=== PATIENT | female | born 1980 | race Caucasian/White ===

== ENCOUNTER → 2016-12-23 | Outpatient (CLI) | payer BC ==
[~2016-12-23] MED LIST: ACET1TAB43 PO; CIPR500T4 PO; CIPR500T78 PO; CYCL10TA45 PO; CYCL10TA9 PO; DICY20TA57 PO; DIPH25CA79 PO; IBP600T1 PO; IBUP-1773 PO; MELO-195 PO; METH4TAB PO; METR500T PO; METR500T21 PO; NAPR550T2 PO; ONDA8TAB13 PO; OXYC-197 PO; OXYC-272 PO; OXYC1TAB17 PO; OXYC1TAB87 PO; PANT40TA2 PO; POLY119P PO; PREN1TAB39 PO; PROP10TA8 PO; TRAM50TA2 PO
--- OUTSIDE RECORDS SUMMARY | 2016-12-23 16:45 | XMS REPORT | Continuity of Care Document ---
Author Author [facility] Organization [facility] Address Unknown Phone Unavailable Care Team Providers Care Fishing Manager Name Role Phone Karlos Ehsan PCP [phone] Source Comments Some departments are not documenting in the electronic medical record. If you do not see the information that you expected, contact Release of Information in the Health Information Management department at [phone] for further assistance in locating additional records.[facility] Active Allergies and Adverse Reactions Allergen Noted Date Severity Reactions Comments Latex 08/30/2016 Medium HIVES Current Medications Prescription Sig. Disp. Refills Start End Date Status Date METRONIDAZOLE (FLAGYL PO) Take by mouth. Active CIPROFLOXACIN HCL (CIPRO Take by mouth. Active PO) OXYCODONE HCL (OXYCODONE Take by mouth. Active PO) OMEPRAZOLE PO Take by mouth. Active SUCRALFATE PO Take by mouth. Active CYCLOBENZAPRINE HCL Take by mouth. Active (FLEXERIL PO) TRAMADOL HCL (TRAMADOL Take by mouth. Active PO) NAPROXEN PO Take by mouth. Active dicyclomine (BENTYL) 20 Take 1 Tab by mouth every 30 Tab 0 12/30/19 Active mg tablet 6 hours. 16 Active Problems Not on file Most Recent Encounters Date Type Specialty Providers Description 11/24/2016 Hospital Radiology Jairo Vega MD Encounter 11/24/2016 Ancillary General Surgery Jairo Vega MD Abdominal pain, Orders unspecified location (Primary Dx) 11/24/2016 Screening Form 11/01/2016 Screening Form 09/30/2016 Telephone Oncology Jairo Vega MD Appointment Social History Tobacco Use Types Packs/Day Years Used Date Never Smoker Alcohol Use Drinks/Week oz/Week Comments Yes Last Filed Vital Signs Vital Sign Reading Time Taken Blood Pressure 116/75 08/30/2016 12:34 PM CDT Pulse 73 08/30/2016 12:34 PM CDT Temperature 36.7 C (98.1 F) 08/30/2016 12:34 PM CDT Respiratory Rate 17 08/30/2016 12:34 PM CDT Height 1.727 m (5' 8") 11/24/2016 2:53 PM LEADERSHIP PROGRAM INTERN Weight 69.854 kg (154 lb) 11/24/2016 2:53 PM LEADERSHIP PROGRAM INTERN Body Mass Index 23.42 11/24/2016 2:53 PM LEADERSHIP PROGRAM INTERN Oxygen Saturation 100% 08/30/2016 12:34 PM CDT Plan of Care Health Maintenance Due Date Last Done Comments Physical (Comprehensive) 1988 Exam Pertussis Vaccine 1992 Tetanus Vaccine 1998 Cervical Cancer Screening 2002 Influenza Vaccine 07/18/2016 Results from Last 3 Months MRI PELVIS WO CONTRAST (11/24/2016 4:13 PM) Impressions 1.Complex right adnexal cystic mass with prior hysterectomy. This finding is nonspecific but could represent a hemorrhagic ovarian cyst or endometrioma. Further evaluation with ultrasound is recommended. 2.No inguinal abnormality identified. 3.Myotendinous structures are unremarkable. Approved by Ryan Flores M.D. on 2016 7:15 PM By my electronic signature, I attest that I have personally reviewed the images for this examination and formulated the interpretations and opinions expressed in this report Finalized by Sincere Glass M.D. on 11/26/2016 1:04 PM. Dictated by Ryan Flores M.D. on 2016 7:07 PM. Narrative MRI of the pelvis. History:Evaluate for hernia or nerve entrapment. Comparison: [place]am[facility]/pelvic CT from December 30, 2015. Technique: Multiplanar, multisequence MR imaging of the pelvis was performed without the use of intravenous contrast. Findings: No fracture, avascular necrosis, or suspicious focal marrow replacing osseous lesion. The myotendinous structures are unremarkable. The visualized portions of the sciatic nerves are unremarkable without evidence of mass effect. No inguinal hernias. No lymphadenopathy. Hysterectomy. Complex right adnexal cystic mass measuring approximately 5.8 cm x 5.8 cm. Procedure Note Interface, Radiant Results - Tue Nov 26, 2016 1:07 PM LEADERSHIP PROGRAM INTERN MRI of the pelvis. History: Evaluate for hernia or nerve entrapment. Comparison: [place]am[facility]/pelvic CT from December 30, 2015. Technique: Multiplanar, multisequence MR imaging of the pelvis was performed without the use of intravenous contrast. Findings: No fracture, avascular necrosis, or suspicious focal marrow replacing osseous lesion. The myotendinous structures are unremarkable. The visualized portions of the sciatic nerves are unremarkable without evidence of mass effect. No inguinal hernias. No lymphadenopathy. Hysterectomy. Complex right adnexal cystic mass measuring approximately 5.8 cm x 5.8 cm. IMPRESSION 1. Complex right adnexal cystic mass with prior hysterectomy. This finding is nonspecific but could represent a hemorrhagic ovarian cyst or endometrioma. Further evaluation with ultrasound is recommended. 2. No inguinal abnormality identified. 3. Myotendinous structures are unremarkable. Approved by Ryan Flores M.D. on 2016 7:15 PM By my electronic signature, I attest that I have personally reviewed the images for this examination and formulated the interpretations and opinions expressed in this report Finalized by Sincere Glass M.D. on 11/26/2016 1:04 PM. Dictated by Ryan Flores M.D. on 2016 7:07 PM.
--- NOTE | 2016-12-23 17:25 | Diagnostic Imaging Report ---
INDICATION: Adnexal cyst. COMPARISON STUDY: CT scan from October 02, 2015. FINDINGS: Transabdominal and transvaginal imaging of the pelvis demonstrates a 2.4 x 2.3 x 2 cm simple cyst in the right ovary. No free fluid is present. A couple of smaller cysts are present in the right ovary. The right ovary measures 3.3 x 2.5 cm. The uterus and left ovary are absent. IMPRESSION: There are several simple cysts of the right ovary the largest one measuring 2.4 x 2.3 x 2 cm. Dictated by: Dictated on workstation # [id number]
== END ==
LOC: RAD 16:42
PROVIDERS: ATTEND Obstetrics & Gynecology
DX: N83.201 Unspecified ovarian cyst, right side (principal)
CPT/HCPCS: 76830; 76856

== ENCOUNTER 2017-01-10 09:00 | Outpatient (CLI) | payer BC ==
--- OUTSIDE RECORDS SUMMARY | 2017-01-09 06:30 | XMS REPORT | Continuity of Care Document ---
Author Author [facility] Organization [facility] Address Unknown Phone Unavailable Care Team Providers Care Hog Operator Name Role Phone TOMMY AHUMADA MD PCP Insurance Providers Payer Name Policy Number Subscriber Name Relationship [facility] [id number] Kirk Loyd M 01 Advance Directives Directive Response Recorded Date/Time Advance Directives No 08/08/14 1:50pm Health Care Power of Equal Employment Opportunity Officer No 08/08/14 1:50pm Organ Donor No 08/08/14 1:50pm Resuscitation Status Full Code 08/08/14 1:50pm Problems Medical Problems Problem Onset Date Status Appendicitis Unknown Active Pelvic congestion Unknown Active Medications Medication Dose Route Sig Days/Qty Instructions Order Date Discontinued Date Status Vits W-Ca,Fe,Fa(<1MG) 1 Each PO Take for as long 01/25/12 06/03/14 Discontinued Ibuprofen 600 Mg PO EVERY 6 HOURS 01/27/12 06/03/14 Discontinued Codeine Phos/Acetaminophen 1 Tab PO EVERY 4HRS PRN As needed for pain 01/27/12 Active Tramadol Hcl 50 Mg PO EVERY 4HRS 02/13/14 08/08/14 Discontinued Cyclobenzaprine HCl (Flexeril) 1 Each PO 02/13/14 06/03/14 Discontinued Cyclobenzaprine Hcl 10 Mg PO EVERY 8HRS 02/13/14 Active Methylprednisolone 0 PO DIRECTED 1 Qty 02/13/14 06/03/14 Discontinued Tramadol Hcl 50 Mg PO EVERY 6 HOURS PRN PAIN 100 Qty 06/03/14 Discontinued Oxycodone Hcl/Acetaminophen 1 Tab PO EVERY 6 HOURS PRN p 20 Qty Active Naproxen Sodium 550 Mg PO TWICE A DAY 60 Qty 06/03/14 Active Oxycodone/Acetaminophen 1-2 Tab PO EVERY 4HRS PRN PAIN 35 Qty 06/03/14 08/08/14 Discontinued Meloxicam (Mobic) 15 Mg PO DAILY 08/08/14 Active Oxycodone Hcl/Acetaminophen 1 Tab PO EVERY 6 HOURS PRN PAIN 10 Qty Active Social History Social History Problem Response Recorded Date/Time Alcohol Use Occasionally Uses 08/08/2014 1:50pm Recreational Drug Use THC (pulled in from recall) 08/08/2014 1:50pm Smoking Status Former Smoker 08/08/2014 1:50pm Query Response Start Date Stop Date Smoking Status Former Smoker Hospital Discharge Instructions No hospital discharge instructions. Plan of Care No plan of care. Functional Status No functional status results. Allergies, Adverse Reactions, Alerts Allergen Type Severity Reaction Status Last Updated hydrocodone ([id number]) Adverse Reaction Unknown TOOK ON EMPTY STOMACH= NAUSEA Active 09/21/06 tramadol Adverse Reaction Mild Stomach upset Active 08/08/14 LATEX Allergy Unknown Active 09/21/06 Immunizations Name Given Type Date of Influenza Vaccine 07/28/13 Historical Vital Signs Acute Vital Signs Vital Response Date/Time Temperature (Fahrenheit) 98.7 degrees F (97.6 - 99.5) Temperature (Calculated Celsius) 37.08073 degrees C (36.4 - 37.5) Temperature Source Temporal Pulse Rate (adult) 83 bpm (60 - 90) Respiratory Rate 16 bpm (12 - 24) O2 Sat by Pulse Oximetry 99 % (88 - 100) Blood Pressure 137/96 mm Hg Pain Pain Intensity 2 Height (Feet) 5 feet Height (Inches) 8 inches Height (Calculated Centimeters) 172.644917 cm Weight (Pounds) 140 pounds Weight (Calculated Kilograms) 63.178480 kilograms Calculated BMI 21.28 Results Test Source Date Result Interp. Ref. Range Comments Alanine Aminotransferase (ALT/SGPT) June 03, 2014 2:05pm 64 U/L N 30-65 Albumin June 03, 2014 2:05pm 4.0 G/DL N 3.4-5.0 Alkaline Phosphatase June 03, 2014 2:05pm 83 U/L N 50-136 Aspartate Amino Transf (AST/SGOT) June 03, 2014 2:05pm 24 U/L N 15-37 BUN/Creatinine Ratio June 03, 2014 2:05pm 11 - Band Neutrophils June 09, 2006 3:20pm 5 - Basophils # (Auto) June 03, 2014 2:05pm 0.0 10^3/uL N 0.0-0.1 Basophils % (Manual) June 09, 2006 3:20pm 0 - Basophils (%) (Auto) June 03, 2014 2:05pm 0 % N 0-10 Blood Urea Nitrogen June 03, 2014 2:05pm 9 MG/DL N 7-18 Calcium Level June 03, 2014 2:05pm 9.0 MG/DL N 8.5-10.1 Carbon Dioxide Level June 03, 2014 2:05pm 28 MMOL/L N 21-32 Chloride Level June 03, 2014 2:05pm 106 MMOL/L N 101-110 Creatinine June 03, 2014 2:05pm 0.8 MG/DL N 0.6-1.3 Eosinophils # (Auto) June 03, 2014 2:05pm 0.1 10^3/uL N 0.0-0.3 Eosinophils % (Manual) June 09, 2006 3:20pm 0 - Eosinophils (%) (Auto) June 03, 2014 2:05pm 1 % N 0-10 Glucose Level June 03, 2014 2:05pm 91 MG/DL N 74-106 Hematocrit June 03, 2014 2:05pm 34 % L 35-52 Hemoglobin June 03, 2014 2:05pm 11.8 G/DL N 11.5-16.0 Lymphocytes # (Auto) June 03, 2014 2:05pm 1.5 X 10^3 N 1.0-4.0 Lymphocytes % (Manual) June 09, 2006 3:20pm 12 - Lymphocytes (%) (Auto) June 03, 2014 2:05pm 18 % N 12-44 Mean Corpuscular Hemoglobin June 03, 2014 2:05pm 32 PG N 25-34 Mean Corpuscular Hemoglobin Concent June 03, 2014 2:05pm 35 G/DL N 32- 36 Mean Corpuscular Volume June 03, 2014 2:05pm 93 FL N 80-99 Mean Platelet Volume June 03, 2014 2:05pm 9.4 FL N 7.4-10.4 Monocytes # (Auto) June 03, 2014 2:05pm 0.6 X 10^3 N 0.0-1.0 Monocytes % (Manual) June 09, 2006 3:20pm 5 - Monocytes (%) (Auto) June 03, 2014 2:05pm 7 % N 0-12 Neutrophils # (Auto) June 03, 2014 2:05pm 6.4 X 10^3 N 1.8-7.8 Neutrophils % (Manual) June 09, 2006 3:20pm 78 - Neutrophils (%) (Auto) June 03, 2014 2:05pm 75 % N 42-75 Platelet Count June 03, 2014 2:05pm 211 10^3/uL N 130-400 Potassium Level June 03, 2014 2:05pm 3.9 MMOL/L N 3.6-5.0 RBC Morphology Bizarre Forms April 22, 2006 4:54am Normal - Has specimen been collected/obtained? Y Red Blood Count June 03, 2014 2:05pm 3.69 10^6/uL L 4.35-5.85 Red Cell Distribution Width June 03, 2014 2:05pm 12.1 % N 10.0-14.5 Sodium Level June 03, 2014 2:05pm 139 MMOL/L N 135-145 Total Bilirubin June 03, 2014 2:05pm 0.5 MG/DL N 0.0-1.0 Total Protein June 03, 2014 2:05pm 7.0 G/DL N 6.4-8.2 Toxic Granulation April 22, 2006 4:54am 1+ - Has specimen been collected/obtained? Y Ur Tricyclic Antidepressants Screen February 13, 2014 7:52pm NEGATIVE - Urine Amphetamines Screen February 13, 2014 7:52pm NEGATIVE - Urine Bacteria June 03, 2014 1:57pm NEGATIVE /HPF - Has specimen been collected/obtained? YSpecimen Description CLEAN CATCH Urine Barbiturates Screen February 13, 2014 7:52pm NEGATIVE - Urine Benzodiazepines Screen February 13, 2014 7:52pm NEGATIVE - Urine Bilirubin June 03, 2014 1:57pm NEGATIVE - Has specimen been collected/obtained? YSpecimen Description CLEAN CATCH Urine Casts June 03, 2014 1:57pm NONE /LPF - Has specimen been collected/obtained? YSpecimen Description CLEAN CATCH Urine Clarity June 03, 2014 1:57pm CLEAR - Has specimen been collected/obtained? YSpecimen Description CLEAN CATCH Urine Cocaine Screen February 13, 2014 7:52pm NEGATIVE - Urine Color June 03, 2014 1:57pm YELLOW - Has specimen been collected /obtained? YSpecimen Description CLEAN CATCH Urine Crystals June 03, 2014 1:57pm NONE /LPF - Has specimen been collected/obtained? YSpecimen Description CLEAN CATCH Urine Culture Indicated June 03, 2014 1:57pm NO - Has specimen been collected/obtained? YSpecimen Description CLEAN CATCH Urine Glucose (UA) June 03, 2014 1:57pm NEGATIVE - Has specimen been collected/obtained? YSpecimen Description CLEAN CATCH Urine Ketones June 03, 2014 1:57pm NEGATIVE - Has specimen been collected/obtained? YSpecimen Description CLEAN CATCH Urine Leukocyte Esterase June 03, 2014 1:57pm NEGATIVE - Has specimen been collected/obtained? YSpecimen Description CLEAN CATCH Urine Methamphetamines Screen February 13, 2014 7:52pm NEGATIVE - Urine Mucus June 03, 2014 1:57pm NEGATIVE /LPF - Has specimen been collected/obtained? YSpecimen Description CLEAN CATCH Urine Nitrate April 22, 2006 5:10am Negative - Has specimen been collected/obtained? YSpecimen Description CLEAN CATCH Urine Nitrite June 03, 2014 1:57pm NEGATIVE - Has specimen been collected/obtained? YSpecimen Description CLEAN CATCH Urine Opiates Screen February 13, 2014 7:52pm NEGATIVE - Urine Phencyclidine Screen February 13, 2014 7:52pm NEGATIVE - Urine Propoxyphene Screen February 13, 2014 7:52pm NEGATIVE - Urine Protein June 03, 2014 1:57pm NEGATIVE - Has specimen been collected/obtained? YSpecimen Description CLEAN CATCH Urine RBC June 03, 2014 1:57pm NONE /HPF - Has specimen been collected/obtained? YSpecimen Description CLEAN CATCH Urine Specific Slater June 03, 2014 1:57pm 1.005 L - Has specimen been collected/obtained? YSpecimen Description CLEAN CATCH Urine Squamous Epithelial Cells June 03, 2014 1:57pm 2-5 /HPF - Has specimen been collected/obtained? YSpecimen Description CLEAN CATCH Urine Urobilinogen June 03, 2014 1:57pm NORMAL MG/DL - Has specimen been collected/obtained? YSpecimen Description CLEAN CATCH Urine WBC June 03, 2014 1:57pm NONE /HPF - Has specimen been collected/obtained? YSpecimen Description CLEAN CATCH Urine pH June 03, 2014 1:57pm 7 - Has specimen been collected/ obtained? YSpecimen Description CLEAN CATCH White Blood Count June 03, 2014 2:05pm 8.6 10^3/uL N 4.3-11.0 Estimat Glomerular Filtration Rate June 03, 2014 2:05pm > 60 - GFR INTERPRETIVE DATA UNITS FOR ESTIMATED GFR (eGFR): mL/min/1.73 M2 REFERENCE RANGE FOR ESTIMATED GFR (eGFR) eGFR NORMAL eGFR >60 MODERATELY DECREASED eGFR 30-59 SEVERLY DECREASED eGFR 15-29 KIDNEY FAILURE <15 (OR DIALYSIS) Urine Oxycodone Screen February 13, 2014 7:52pm NEGATIVE - Urine Methadone Screen February 13, 2014 7:52pm NEGATIVE - Urine Cannabinoids Screen February 13, 2014 7:52pm POSITIVE H - Urine Buprenorphine February 13, 2014 7:52pm NEGATIVE - Urine RBC (Auto) June 03, 2014 1:57pm NEGATIVE - Has specimen been collected/obtained? YSpecimen Description CLEAN CATCH Ova and Parasites Stool June 09, 2006 6:10pm MRSA Screen Nasal June 03, 2014 3:32pm MRSA not isolated Urine Culture Urine-Clean Catch April 22, 2006 5:10am Procedures No known history of procedures. Encounters Encounter Location Date/Time Departed Emergency Room [facility] 08/08/14 1:42pm Recent Diagnosis
[~2017-01-10] VITALS: Ht 172.7 cm; Wt 68.0 kg
[~2017-01-10 09:00] MED LIST changes: -PANT40TA2 PO
--- OUTSIDE RECORDS SUMMARY | 2017-01-10 09:04 | XMS REPORT | Continuity of Care Document ---
Author Author [facility] Organization [facility] Address Unknown Phone Unavailable Care Team Providers Care Analytics Associate Name Role Phone Karlos Ehsan PCP [phone] Source Comments Some departments are not documenting in the electronic medical record. If you do not see the information that you expected, contact Release of Information in the Health Information Management department at [phone] for further assistance in locating additional records.[facility] Active Allergies and Adverse Reactions [...] Dx) 11/24/2016 Screening Form 11/01/2016 Screening Form Social History Tobacco Use Types Packs/Day Years Used Date Never Smoker Alcohol Use Drinks/Week oz/Week Comments Yes Last Filed Vital Signs Vital Sign Reading Time Taken Blood Pressure 116/75 08/30/2016 12:34 PM CDT Pulse 73 08/30/2016 12:34 PM CDT Temperature 36.7 C (98.1 F) 08/30/2016 12:34 PM CDT Respiratory Rate 17 08/30/2016 12:34 PM CDT Height 1.727 m (5' 8") 11/24/2016 2:53 PM LATHE TENDER Weight 69.854 kg (154 lb) 11/24/2016 2:53 PM LATHE TENDER Body Mass Index 23.42 11/24/2016 2:53 PM LATHE TENDER Oxygen Saturation 100% 08/30/2016 12:34 PM CDT [...] opinions expressed in this report Finalized by iSncere Glass M.D. on 11/26/2016 1:04 PM. Dictated [...] - Tue Nov 26, 2016 1:07 PM LATHE TENDER MRI of the pelvis. History: Evaluate for [...]
== END 2017-01-10 09:09 ==
LOC: PREOP 09:00
PROVIDERS: ATTEND Surgery
DX: Z01.818 Encounter for other preprocedural examination (principal); K21.9 Gastro-esophageal reflux disease without esophagitis; R10.13 Epigastric pain

== ENCOUNTER 2017-01-13 07:51 | Day surgery (SDC) | payer BC ==
[~2017-01-13] VITALS: Ht 172.7 cm; Wt 68.0 kg
--- OUTSIDE RECORDS SUMMARY | 2017-01-13 07:55 | XMS REPORT | Continuity of Care Document ---
Author Author [facility] Organization [facility] Address Unknown Phone Unavailable Care Team Providers Care Coverage Specialist Name Role Phone Karlos Ehsan PCP [phone] Source Comments Some departments are not documenting in the electronic medical record. If you do not see the information that you expected, contact Release of Information in the Health Information Management department at [phone] for further assistance in locating additional records.[facility] Active Allergies and Adverse Reactions [...] 1.727 m (5' 8") 11/24/2016 2:53 PM FAMILY AND CONSUMER SCIENCE PROFESSOR Weight 69.854 kg (154 lb) 11/24/2016 2:53 PM FAMILY AND CONSUMER SCIENCE PROFESSOR Body Mass Index 23.42 11/24/2016 2:53 PM FAMILY AND CONSUMER SCIENCE PROFESSOR Oxygen Saturation 100% 08/30/2016 12:34 PM CDT [...] - Tue Nov 26, 2016 1:07 PM FAMILY AND CONSUMER SCIENCE PROFESSOR MRI of the pelvis. History: Evaluate for [...]
--- OUTSIDE RECORDS SUMMARY | 2017-01-13 07:56 | XMS REPORT | Continuity of Care Document ---
Author Author [facility] Organization [facility] Address Unknown Phone Unavailable Care Team Providers Care Supervisor Dog License Officer Name Role Phone Karlos Ehsan PCP [phone] Source Comments Some departments are not documenting in the electronic medical record. If you do not see the information that you expected, contact Release of Information in the Health Information Management department at [phone] for further assistance in locating additional records.[facility] Active Allergies and Adverse Reactions Allergen Noted [...] 1.727 m (5' 8") 11/24/2016 2:53 PM JIG FILLER Weight 69.854 kg (154 lb) 11/24/2016 2:53 PM JIG FILLER Body Mass Index 23.42 11/24/2016 2:53 PM JIG FILLER Oxygen Saturation 100% 08/30/2016 12:34 PM CDT [...] - Tue Nov 26, 2016 1:07 PM JIG FILLER MRI of the pelvis. History: Evaluate for [...]
[2017-01-13] MEDS ORDERED: NS IV 500 ML 500 ML IV PRN (08:15)
[2017-01-13] MEDS ORDERED: NALOXONE 0.4 MG/ML 1 ML (NARCAN) VIAL IVP PRN (08:15)
[2017-01-13] MEDS ORDERED: HURRICAINE EXT TUBE (BENZOCAINE) XX PRN (08:15)
[2017-01-13] MEDS ORDERED: FLUMAZENIL (ROMAZICON) 0.1 MG/ML 5 ML VIAL INJ PRN (08:15)
--- NOTE | 2017-01-13 08:15 | Pre-Op Note & Conscious Sedat ---
Pre-Operative Progress Note H&P Reviewed The H&P was reviewed, patient examined and no changes noted. Date H&P Reviewed: Jan 13, 2017 Time H&P Reviewed: 08:15 Pre-Op Diagnosis: GERD Conscious Sedation Pre-Proced ASA Class: 2 Airway Mallampati Classification: ([place] appropriate class) I. II. III, IV Lungs Heart ASA score ASA 1: a normal healthy patient ASA 2: a patient with a mild systemic disease (mid diabetes, controlled hypertension, obesity ASA 3: a patient with a severe systemic disease that limits activity (angina , COPD, prior Myocardial infarction) ASA 4: a patient with an incapacitating disease that is a constant threat to life (CHF, renal failure) ASA 5: a moribund patient not expected to survive 24 hrs. (ruptured aneurysm) ASA 6: a declared brain patient whose organs are being harvested. For emergent operations, add the letter E after the classification Grade 1 Sedation Plan: Discussed options with patient/fam Note The patient is an appropriate candidate to undergo the planned procedure, sedation, and anesthesia. The patient immediately re-assessed prior to indication. MALATHI VILLEGAS MD Jan 13, 2017 8:15 am
[2017-01-13 08:22] VITALS: BP 119/72
[2017-01-13] MEDS ORDERED: fentaNYL INJECTION 100 MCG/2 ML AMP ONE (08:26)
[2017-01-13] MEDS ORDERED: HURRICAINE EXT TUBE (BENZOCAINE) ONE (08:27)
[2017-01-13] MEDS ORDERED: MIDAZOLAM 2 MG/2 ML (VERSED) VIAL ONE ×5 (08:27)
[2017-01-13] MEDS: fentaNYL INJECTION 100 MCG/2 ML AMP IVP PRN ×2 (08:34→08:36)
[2017-01-13] MEDS: MIDAZOLAM 2 MG/2 ML (VERSED) VIAL IVP PRN ×5 (08:35→08:43)
--- NOTE | 2017-01-13 08:55 | Progress Note-Post Operative ---
Post-Operative Progess Note Pre-Operative Diagnosis GERD Post-Operative Diagnosis short hiatal hernia with grade 2 esophagitis. Multiple, shallow distal gastric and antral erosions Post-Op Procedure Note Date of Procedure: Jan 13, 2017 Name of Procedure: EGD with antral biopsy Anesthesia Type sedation Specimen(s) collected antral mucosa MALATHI VILLEGAS MD Jan 13, 2017 8:55 am
[2017-01-13] MEDS ORDERED: PANT40TA2 PO (08:56)
--- NOTE | 2017-01-13 08:57 | Discharge Inst-Simple/Standard ---
Discharge Inst-Standard Discharge Medications New, Converted or Re-Newed RX: RX on Chart Patient Instructions/Follow Up Plan of Care/Instructions/FU: follow-up with her primary physician Activity as Tolerated: Yes Discharge Diet: No Restrictions MALATHI VILLEGAS MD Jan 13, 2017 8:57 am
[2017-01-13 09:20] VITALS: BP 108/58
--- NOTE | 2017-01-13 09:45 | PROCEDURE REPORT ---
PROCEDURE PHYSICIAN: MALATHI VILLEGAS DATE OF PROCEDURE: 01/13/2017 PROCEDURE: Upper GI endoscopy with antral biopsy. SURGEON: Fransisco INDICATION FOR THE PROCEDURE: This lady came in for an endoscopic assessment of symptoms of chronic reflux. She reports having to use nonsteroidals, to manage symptoms from a cervical spine problem, over the last several years. An informed consent was obtained after reviewing the procedure in detail. DESCRIPTION OF PROCEDURE: She was placed in left lateral decubitus position and her vital signs were monitored. Conscious sedation was achieved using Versed and fentanyl. Flexible gastroscope was introduced down the esophagus, past the stomach, into the proximal duodenum. FINDINGS: ESOPHAGUS: A short hiatal hernia with a grade II esophagitis. STOMACH: Multiple, shallow erosions were found along the distal body and the antrum. These are probably related to chronic use of nonsteroids. There was no wilfred ulceration. Biopsy for Helicobacter pylori was obtained. DUODENUM: Normal. She tolerated the procedure well and was taken back to the nursing area in a stable condition. IMPRESSION: 1. Symptoms of reflux disease. 2. Grade II esophagitis and multiple gastric erosions. 3. Helicobacter status pending. Job ID: [id number] Dictated Date: 01/13/2017 08:54:26 Diagnostic Medical Sonographer Date: 01/13/2017 09:40:36 / rosina GASTON
[2017-01-13 09:50] VITALS: BP 101/70
[2017-01-13 10:15] VITALS: BP 101/70
== END 2017-01-13 10:15 | disposition home or self-care (01) ==
LOC: ENDO 07:51
PROVIDERS: ATTEND Surgery
DX: K20.8 Other esophagitis (principal); K25.9 Gastric ulcer, unspecified as acute or chronic, without hemorrhage or perforation; Z79.899 Other long term (current) drug therapy
CPT/HCPCS: 88305

== ENCOUNTER 2017-01-27 12:14 | Outpatient (CLI) | payer BC ==
[~2017-01-27] VITALS: Ht 172.7 cm; Wt 68.0 kg
[~2017-01-27 12:14] MED LIST changes: +PANT40TA2 PO
--- OUTSIDE RECORDS SUMMARY | 2017-01-27 12:18 | XMS REPORT | Continuity of Care Document ---
Author Author [facility] Organization [facility] Address Unknown Phone Unavailable Care Team Providers Care Crosstie Inspector Name Role Phone Karlos Ehsan PCP [phone] Source Comments Some departments are not documenting in the electronic medical record. If you do not see the information that you expected, contact Release of Information in the Health Information Management department at [phone] for further assistance in locating additional records.[facility] Active Allergies and Adverse Reactions Allergen [...] Recent Encounters Date Type Specialty Providers Description 01/22/2017 Telephone Oncology Jairo Vega MD General Question 11/24/2016 Hospital Radiology Jairo Vega MD Encounter [...] 1.727 m (5' 8") 11/24/2016 2:53 PM STEM THRESHING MACHINE OPERATOR Weight 69.854 kg (154 lb) 11/24/2016 2:53 PM STEM THRESHING MACHINE OPERATOR Body Mass Index 23.42 11/24/2016 2:53 PM STEM THRESHING MACHINE OPERATOR Oxygen Saturation 100% 08/30/2016 12:34 PM CDT Plan of Care Health Maintenance Due Date Last Done Comments Physical (Comprehensive) 1988 Exam Pertussis Vaccine 1992 Tetanus Vaccine 1998 Cervical Cancer Screening 2002 Influenza Vaccine 07/18/2017 Results from Last 3 Months MRI PELVIS [...] - Tue Nov 26, 2016 1:07 PM STEM THRESHING MACHINE OPERATOR MRI of the pelvis. History: Evaluate for [...]
[2017-01-27] MEDS ORDERED: TRIAMCINOLONE ACET (KENALOG-40) 40 MG/ML 1 ML VIAL ONE (12:33)
[2017-01-27] MEDS ORDERED: LIDOCAINE 1% INJ 20 ML (XYLOCAINE) VIAL ONE (12:33)
[2017-01-27] MEDS ORDERED: BUPIVACAINE 0.5% 30 ML (SENSORCAINE) VIAL ONE (12:33)
[2017-01-27 12:38] VITALS: BP 121/74
[2017-01-27 13:22] VITALS: BP 118/91
--- NOTE | 2017-01-27 14:33 | Pain Medicine-Procedure ---
Procedure Pre-Op/Post-Op Diagnosis Diagnosis: spondylosis without myelopathy, lumbar Indications for Operation Low back pain Attending Surgeon Renee Procedure Date of Service: Jan 27, 2017 PROCEDURE: Bilateral lumbar medial branch block at L3,L4, L5 and sacral ala under fluoroscopic guidance. PROCEDURE DETAILS: After obtaining an informed consent from the patient, the patient's chart was reviewed. The patient was brought to the procedure room and placed in a prone position. The back was prepped with antiseptic solution, and under fluoroscopic guidance the sacral ala was identified bilaterally. 0.5 cc of 1% Lidocaine to anesthetize the skin. Two 22 gauge 3.5 inch spinal needles were inserted under fluoroscopic guidance until it got in touch with the bone at the sacral ala bilaterally. Then under right oblique fluoroscopy, the junction of the superior articular process and transverse process on the right at L3, L4, and L5 was identified. 0.5 cc of 1% Lidocaine was used to anesthetize the skin. A 22 gauge 3.5 inch spinal needle was inserted through the skin under fluoroscopic guidance until it came in touch with the bone at the junction between the superior articular process and transverse process at each level. The exact steps were repeated for the left side. After needle aspiration,80 mg of kenalog total was injected in equal alliquots followed by 0.5 cc of 0.5% bupivacaine at each. The patient tolerated the procedure well. The needles were flushed and removed, and a Band-Aide was applied. Complications None VITOR PALMA MD Jan 27, 2017 2:33 pm
== END 2017-01-27 13:23 | disposition home or self-care (01) ==
LOC: CARD 12:14
PROVIDERS: ATTEND Pain Medicine Pain Medicine
DX: M47.816 Spondylosis without myelopathy or radiculopathy, lumbar region (principal); Z79.899 Other long term (current) drug therapy
CPT/HCPCS: 64493; 64494; 64495

== ENCOUNTER → 2017-02-14 | Outpatient (CLI) | payer BC ==
[~2017-02-14] VITALS: Ht 174 cm; Wt 68.9 kg
[~2017-02-14] MED LIST changes: +BUPIVACAINE 0.25% 30 ML (SENSORCAINE) VIAL ONE; +TRIAMCINOLONE ACET (KENALOG-40) 40 MG/ML 1 ML VIAL ONE
[2017-02-14 12:05] VITALS: BP 115/78
[2017-02-14 12:47] VITALS: BP 126/85
--- NOTE | 2017-02-14 14:12 | Pain Medicine-Procedure ---
Procedure Pre-Op/Post-Op Diagnosis Diagnosis: Disc disorder with radiculopathy, lumbar Indications for Operation Low back pain Attending Surgeon Renee Procedure Date of Service: Feb 14, 2017 Procedure: Lumbar Epidural Steroid Injection at the L5-S1 level under Fluoroscopic Guidance Procedure: Patient was identified in the holding area. After risks, benefits, and alternatives were discussed with the patient, informed consent was obtained. Patient was brought to the fluoroscopy suite and placed prone on the procedure room table. A time out was performed. Vital signs were monitored throughout the procedure. The patients low back was prepped and draped in the usual sterile fashion. The patients skin was anesthetized using 2% Lidocaine. A Tuohy needle was inserted and advanced to the L5-S1 epidural space under fluoroscopic guidance using the loss of resistance technique and intermittent projection of fluoroscopy. There was no paresthesia with needle placement. The needle position was confirmed in both the AP and lateral view. After negative aspiration 2ml of contrast was injected under live fluoroscopy which showed good spread of the contrast in the epidural space at the appropriate level, there was no intravascular or subarachnoid spread. Again, after negative aspiration for heme or CSF, 2 ml of 0.25% Bupivicaine, 2ml of preservative free normal saline, and 80mg of Kenalog was injected. The needle was removed and a sterile bandage was placed and the patient was transferred to the recovery area in stable condition. After a brief period of observation, patient was discharged to home with no new neurological deficits and no apparent complications. Complications None VITOR PALMA MD Feb 14, 2017 2:12 pm
== END ==
LOC: CARD 11:26
PROVIDERS: ATTEND Pain Medicine Pain Medicine
DX: M51.16 Intervertebral disc disorders with radiculopathy, lumbar region (principal); M47.816 Spondylosis without myelopathy or radiculopathy, lumbar region; M50.23 Other cervical disc displacement, cervicothoracic region; Z79.899 Other long term (current) drug therapy
CPT/HCPCS: 62323

== ENCOUNTER 2017-03-17 13:16 | Outpatient (CLI) | payer BC ==
[~2017-03-17] VITALS: Ht 174 cm; Wt 71.7 kg
[~2017-03-17 13:16] MED LIST changes: -BUPIVACAINE 0.25% 30 ML (SENSORCAINE) VIAL ONE; -TRIAMCINOLONE ACET (KENALOG-40) 40 MG/ML 1 ML VIAL ONE
[2017-03-17] MEDS ORDERED: LIDOCAINE 1% INJ 20 ML (XYLOCAINE) VIAL ONE (13:21)
[2017-03-17] MEDS ORDERED: BUPIVACAINE 0.5% 30 ML (SENSORCAINE) VIAL ONE (13:21)
[2017-03-17] MEDS ORDERED: TRIAMCINOLONE ACET (KENALOG-40) 40 MG/ML 1 ML VIAL ONE (13:21)
[2017-03-17 13:34] VITALS: BP 126/81
[2017-03-17 14:12] VITALS: BP 112/80
--- NOTE | 2017-03-17 14:28 | Pain Medicine-Procedure ---
Procedure Pre-Op/Post-Op Diagnosis Diagnosis: spondylosis without myelopathy, lumbar Indications for Operation Low back pain Attending Surgeon Renee Procedure Date of Service: March 17, 2017 PROCEDURE: Bilateral lumbar medial branch block at L3,L4, L5 and sacral ala under fluoroscopic guidance. PROCEDURE DETAILS: After obtaining an informed consent from the patient, the patient's chart was reviewed. The patient was brought to the procedure room and placed in a prone position. The back was prepped with antiseptic solution, and under fluoroscopic guidance the sacral ala was identified bilaterally. 0.5 cc of 1% Lidocaine to anesthetize the skin. Two 22 gauge 3.5 inch spinal needles were inserted under fluoroscopic guidance until it got in touch with the bone at the sacral ala bilaterally. Then under right oblique fluoroscopy, the junction of the superior articular process and transverse process on the right at L3, L4, and L5 was identified. 0.5 cc of 1% Lidocaine was used to anesthetize the skin. A 22 gauge 3.5 inch spinal needle was inserted through the skin under fluoroscopic guidance until it came in touch with the bone at the junction between the superior articular process and transverse process at each level. The exact steps were repeated for the left side. After needle aspiration,80 mg of kenalog total was injected in equal alliquots followed by 0.5 cc of 0.5% bupivacaine at each. The patient tolerated the procedure well. The needles were flushed and removed, and a Band-Aide was applied. Complications None VITOR PALMA MD March 17, 2017 2:28 pm
== END 2017-03-17 14:20 ==
LOC: CARD 13:16
PROVIDERS: ATTEND Pain Medicine Pain Medicine
DX: M47.816 Spondylosis without myelopathy or radiculopathy, lumbar region (principal); Z79.899 Other long term (current) drug therapy
CPT/HCPCS: 64493; 64494; 64495

== ENCOUNTER → 2017-06-09 | Outpatient (CLI) | payer BC | LOC: PREOP 06:13 | PROVIDERS: ATTEND Surgery | DX: Z01.818 Encounter for other preprocedural examination (principal); R10.13 Epigastric pain; K21.9 Gastro-esophageal reflux disease without esophagitis ==

== ENCOUNTER → 2019-04-21 | Outpatient (CLI) | payer BC ==
[~2019-04-21] MED LIST changes: +METR-145 PO; -METR500T21 PO; -OXYC-197 PO
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
== END ==
LOC: RAD 07:47
PROVIDERS: ATTEND Family Medicine
DX: M48.02 Spinal stenosis, cervical region (principal); M47.812 Spondylosis without myelopathy or radiculopathy, cervical region; M25.78 Osteophyte, vertebrae; M50.30 Other cervical disc degeneration, unspecified cervical region; M47.816 Spondylosis without myelopathy or radiculopathy, lumbar region; M54.6 Pain in thoracic spine; Z87.828 Personal history of other (healed) physical injury and trauma; Z87.81 Personal history of (healed) traumatic fracture
CPT/HCPCS: 70551; 72141; 72146

== ENCOUNTER → 2019-04-22 | Outpatient (CLI) | payer BC ==
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
== END ==
LOC: RAD 07:44
PROVIDERS: ATTEND Family Medicine
DX: M47.26 Other spondylosis with radiculopathy, lumbar region (principal); M51.16 Intervertebral disc disorders with radiculopathy, lumbar region; M48.061 Spinal stenosis, lumbar region without neurogenic claudication; M62.838 Other muscle spasm; G44.221 Chronic tension-type headache, intractable; Z87.828 Personal history of other (healed) physical injury and trauma
CPT/HCPCS: 72148

== ENCOUNTER 2019-09-22 00:41 | Observation (INO) | payer BC ==
[~2019-09-22] VITALS: Ht 172.7 cm; Wt 66.2 kg
[2019-09-22] MEDS ORDERED: ONDANSETRON 4 MG/2 ML (SDV) Z0FRAN ONE (00:55)
[2019-09-22] MEDS ORDERED: NS IV 1000 ML 1,000 ML ONE (00:56)
[2019-09-22] MEDS ORDERED: fentaNYL INJECTION 100 MCG/2 ML AMP IVP ONE ×2 (01:00→04:45)
[2019-09-22] MEDS ORDERED: ONDANSETRON 4 MG/2 ML (SDV) Z0FRAN IVP ONE ×2 (01:00→04:30)
[2019-09-22] MEDS ORDERED: LORazepam INJ 2 MG/ML (ATIVAN) VIAL IVP ONE (01:00)
--- NOTE | 2019-09-22 01:05 | NUR ---
PT STILL IN W/C AT THIS TIME AND MULTIPLE ATTEMPTS HAVE BEEN MADE TO OBTAIN VITAL SIGNS BUT PT KEEPS RIPPING OFF BP CUFF STATING "ITS TOO TIGHT AND MAKES MY HAND TINGLE, LOOK AT MY ARM ITS POSTURING!". PT YELLS, "JUST GIVE ME BACLOFEN! MY BACK HURTS! I'M IN PAIN! GIVE ME BACLOFEN!". DR. LOVELL AT BEDSIDE AT THIS TIME AND INFORMED PT THAT TO PROPERLY TAKE CARE OF HER SHE NEEDS TO GET INTO THE BED SO SHE CAN BE ASSESSED AND VITAL SIGNS BE TAKEN BEFORE SHE RECEIVES ANY MEDICATIONS. PT YELLS, "WELL JUST TAKE MY BLOOD PRESSURE MANUALLY!" AGAIN ATTEMPTED TO OBTAIN MEDICAL/SURGICAL HX AND PT WILL NOT ANSWER QUESTIONS. PT INFORMED THAT TO PROPERLY TREAT HER WE NEED HER TO ANSWER QUESTIONS. PT YELLS, "LANDY JUST ANSWER HER FUCKING QUESTIONS!" TO HER . PT NOTIFIED THAT THIS BEHAVIOR IS UNACCEPTABLE AND YELLING AND CUSSING AT STAFF WILL NOT BE TOLERATED. PT STATES, "SHE'S JUST IN A LOT OF PAIN." PT AND AGAIN INFORMED THAT SCREAMING, YELLING, CUSSING, AND DISRESPECTING STAFF WILL NOT BE TOLERATED. DR. LOVELL COULD HEAR PT YELLING AND CUSSING FROM DOCTOR DICTATION DESK WITH PT ROOM DOOR CLOSED.
--- NOTE | 2019-09-22 01:08 | ED GI ---
General Chief Complaint: Abdominal/GI Problems Stated Complaint: VOMITING,HOT SWEATS & COLD CHILLS Source of Information: Patient Exam Limitations: No Limitations History of Present Illness Date Seen by Provider: Sep 22, 2019 Time Seen by Provider: 00:50 Initial Comments Patient presents ER by private conveyance with her significant other and chief complaint of waking up this morning around 7:30 having some nausea vomiting unable to take her medications. She typically takes opiate pain medicine for her chronic back pain. She says is to have the procedure coming up to have some nerves permanently anesthetized. She has no sick contacts fevers but she has had some chills and hot flashes. She's not having cough shortness of breath or constipation. She had a bowel movement today that was loose. She's had her appendix out hysterectomy and tonsils and adenoids. She's had a back surgery before. The only think she's taken for pain today is passing a tablet of her opiates this evening at 10:30. She is asked for baclofen for her nausea and pain. She follows with Dr. Ahumada. Allergies and Home Medications Allergies Coded Allergies: latex (Verified Allergy, Unknown, skin irritation, 03/21/16) tramadol (Unverified Adverse Reaction, Mild, Stomach upset, 08/08/14) hydrocodone (Verified Adverse Reaction, Unknown, TOOK ON EMPTY STOMACH = NAUSEA, 09/21/06) Home Medications Cyclobenzaprine Hcl 10 Mg Tablet, 10 MG PO Q8H PRN for MUSCLE SPASMS, (Reported) Ibuprofen 600 Mg Tablet, 600 MG PO Q6H PRN for PAIN Prescribed by: YOUSIF MEZA on 04/02/161748 Oxycodone HCl/Acetaminophen 1 Each Tablet, 1-2 EACH PO Q6H Prescribed by: YUOSIF MEZA on 04/02/161748 Pantoprazole Sodium 40 Mg Tablet.dr 40 MG PO DAILY Prescribed by: MALATHI VILLEGAS on 01/13/17 0899 Patient Home Medication List Home Medication List Reviewed: Yes Review of Systems Review of Systems Constitutional: chills; No diaphoresis, No fever Respiratory: Denies Cough, Denies Orthopnea, Denies Shortness of Air Cardiovascular: Denies Chest Pain, Denies Edema Gastrointestinal: Denies Abdominal Pain, Denies Constipated, Denies Diarrhea; Nausea, Vomiting Genitourinary: Denies Burning, Denies Discharge Musculoskeletal: No back pain, No joint pain Skin: No pruritus, No rash Psychiatric/Neurological: Denies Headache, Denies Numbness Past Qcxyjay-Dzqltp-Kfsice Hx Patient Social History Smoking Status: Former Smoker Former Smoker, Quit: March 21, 2008 Recent Foreign Travel: No Contact w/Someone Who Travel: No Recent Hopitalizations: No Immunizations Up To Date Tetanus Booster (TDap): Unknown Date of Influenza Vaccine: Jul 28, 2016 Seasonal Allergies Seasonal Allergies: Yes Past Medical History Appendectomy, Hysterectomy, Tonsillectomy Headaches /Migraines Reproductive Disorders: No GRADUATE STUDENT INSTRUCTOR History: Hysterectomy Gastroesophageal Reflux, Irritable Bowel Back Injury Anxiety Family Medical History Alcoholism 19 MOTHER Alzheimer's disease grandparent Colon cancer grandparent Diabetes mellitus 19 FATHER Hypertension grandparent Psychosocial problem 19 FATHER 19 MOTHER G8 SISTER No Pertinent Family Hx Physical Exam Vital Signs Vital Signs - First Documented Capillary Refill : Height/Weight/BMI Height: 5'8.50" Weight: 158lbs. 0.0oz. [id number]; 23.7 BMI Method:Stated General Appearance: WD/WN, mild distress HEENT: PERRL/EOMI, pharynx normal Neck: full range of motion, normal inspection Respiratory: lungs clear, normal breath sounds, other (rapid shallow breathing) Cardiovascular: normal peripheral pulses, regular rate, rhythm Peripheral Pulses: 2+ Radial Pulses (R), 2+ Radial Pulses (L) Gastrointestinal: normal bowel sounds (hypoactive, quiescent), non tender, soft Extremities: non-tender, normal inspection, normal capillary refill Neurologic/Psychiatric: alert, normal mood/affect, oriented x 3 Skin: normal color, warm/dry Progress/Results/Core Measures Results/Orders Lab Results Laboratory Tests Test 09/22/19 01:08 09/22/19 02:40 Range/Units White Blood Count 12.9 H 4.3-11.0 10^3/uL Red Blood Count 4.29 L 4.35-5.85 10^6/uL Hemoglobin 13.4 11.5-16.0 G/DL Hematocrit 39 35-52 % Mean Corpuscular Volume 90 80-99 FL Mean Corpuscular Hemoglobin 31 25-34 PG Mean Corpuscular Hemoglobin Concent 35 32-36 G/DL Red Cell Distribution Width 12.1 10.0-14.5 % Platelet Count 367 130-400 10^3/uL Mean Platelet Volume 10.5 H 7.4-10.4 FL Neutrophils (%) (Auto) 78 H 42-75 % Lymphocytes (%) (Auto) 18 12-44 % Monocytes (%) (Auto) 4 0-12 % Eosinophils (%) (Auto) 0 0-10 % Basophils (%) (Auto) 0 0-10 % Neutrophils # (Auto) 10.2 H 1.8-7.8 X 10^3 Lymphocytes # (Auto) 2.3 1.0-4.0 X 10^3 Monocytes # (Auto) 0.5 0.0-1.0 X 10^3 Eosinophils # (Auto) 0.0 0.0-0.3 10^3/uL Basophils # (Auto) 0.0 0.0-0.1 10^3/uL Sodium Level 140 135-145 MMOL/L Potassium Level 3.6 3.6-5.0 MMOL/L Chloride Level 104 98-107 MMOL/L Carbon Dioxide Level 15 L 21-32 MMOL/L Anion Gap 21 H 5-14 MMOL/L Blood Urea Nitrogen 12 7-18 MG/DL Creatinine 0.79 0.60-1.30 MG/DL Estimat Glomerular Filtration Rate > 60 BUN/Creatinine Ratio 15 Glucose Level 180 H 70-105 MG/DL Calcium Level 10.1 8.5-10.1 MG/DL Corrected Calcium 8.5-10.1 MG/DL Total Bilirubin 0.8 0.1-1.0 MG/DL Aspartate Amino Transf (AST/SGOT) 21 5-34 U/L Alanine Aminotransferase (ALT/SGPT) 24 0-55 U/L Alkaline Phosphatase 50 40-136 U/L Total Protein 7.7 6.4-8.2 GM/DL Albumin 4.7 H 3.2-4.5 GM/DL Lipase 13 8-78 U/L Serum Test, Qualitative NEGATIVE NEGATIVE Salicylates Level < 5.0 L 5.0-20.0 MG/DL Acetaminophen Level < 10 L 10-30 UG/ML Serum Alcohol < 10 <10 MG/DL Urine Color YELLOW Urine Clarity CLEAR Urine pH 6 5-9 Urine Specific [place] 1.020 1.016-1.022 Urine Protein 2+ H NEGATIVE Urine Glucose (UA) 1+ H NEGATIVE Urine Ketones 4+ H NEGATIVE Urine Nitrite NEGATIVE NEGATIVE Urine Bilirubin NEGATIVE NEGATIVE Urine Urobilinogen 1 NORMAL MG/DL Urine Leukocyte Esterase 1+ H NEGATIVE Urine RBC (Auto) 1+ H NEGATIVE Urine RBC 2-5 H /HPF Urine WBC 0-2 /HPF Urine Squamous Epithelial Cells 10-25 H /HPF Urine Renal Epithelial Cells NONE /HPF Urine Crystals NONE /LPF Urine Bacteria MODERATE H /HPF Urine Casts NONE /LPF Urine Mucus NEGATIVE /LPF Urine Culture Indicated NO Urine Opiates Screen NEGATIVE NEGATIVE Urine Oxycodone Screen POSITIVE H NEGATIVE Urine Methadone Screen NEGATIVE NEGATIVE Urine Propoxyphene Screen NEGATIVE NEGATIVE Urine Barbiturates Screen NEGATIVE NEGATIVE Ur Tricyclic Antidepressants Screen NEGATIVE NEGATIVE Urine Phencyclidine Screen NEGATIVE NEGATIVE Urine Amphetamines Screen NEGATIVE NEGATIVE Urine Methamphetamines Screen NEGATIVE NEGATIVE Urine Benzodiazepines Screen POSITIVE H NEGATIVE Urine Cocaine Screen NEGATIVE NEGATIVE Urine Cannabinoids Screen POSITIVE H NEGATIVE My Orders Orders - NORBERTO LOVELL Ondansetron Injection (Zofran Injectio (09/22/19 00:55) Ns Iv 1000 Ml (Sodium Chloride 0.9%) (09/22/19 00:56) Ondansetron Injection (Zofran Injectio (09/22/19 01:00) Lorazepam Injection (Ativan Injection) (09/22/19 01:00) Fentanyl Injection (Sublimaze Injection (09/22/19 01:00) Cbc With Automated Diff (09/22/19 01:00) Comprehensive Metabolic Panel (09/22/19 01:00) Lipase (09/22/19 01:00) Ua Culture If Indicated (09/22/19 01:00) Drug Screen Stat (Urine) (09/22/19 01:00) Hcg,Qualitative Serum (09/22/19 01:00) Ed Iv/Invasive Line Start (09/22/19 02:09) Ns Iv 500 Ml (Sodium Chloride 0.9%) (09/22/19 02:09) Promethazine Injection (Phenergan Injec (09/22/19 02:15) Ketorolac Injection (Toradol Injection) (09/22/19 02:15) Salicylate (09/22/19 02:24) Acetaminophen (09/22/19 02:24) Acute Abd Series (09/22/19 02:26) Alcohol (09/22/19 02:29) Famotidine Tablet (Pepcid Tablet) (09/22/19 04:00) Rx-Ondansetron Po (Rx-Zofran Po) (09/22/19 04:04) Rx-Promethazine Hcl (Rx-Phenergan Supp) (09/22/19 04:04) Ondansetron Injection (Zofran Injectio (09/22/19 04:30) Fentanyl Injection (Sublimaze Injection (09/22/19 04:45) Medications Given in ED Current Medications Medications Dose Ordered Sig/Nata Route Start Time Stop Time Status Last Admin Dose Admin Famotidine 20 mg ONCE ONCE PO 09/22/19 04:00 09/22/19 04:01 DC 09/22/19 03:57 20 MG Fentanyl Citrate 50 mcg ONCE ONCE IVP 09/22/19 01:00 09/22/19 01:03 DC 09/22/19 01:13 50 MCG Ketorolac Tromethamine 30 mg ONCE ONCE IVP 09/22/19 02:15 09/22/19 02:18 DC 09/22/19 02:20 30 MG Lorazepam 0.5 mg ONCE ONCE IVP 09/22/19 01:00 09/22/19 01:03 DC 09/22/19 01:13 0.5 MG Ondansetron HCl 8 mg ONCE ONCE IVP 09/22/19 01:00 09/22/19 01:03 DC 09/22/19 01:13 8 MG Ondansetron HCl 8 mg ONCE ONCE IVP 09/22/19 04:30 09/22/19 04:31 DC 09/22/19 04:33 8 MG Promethazine HCl 25 mg ONCE ONCE IVP 09/22/19 02:15 09/22/19 02:16 DC 09/22/19 02:13 25 MG Sodium Chloride 500 ml @ 0 mls/hr Q0M ONCE IV 09/22/19 02:09 09/22/19 02:10 DC 09/22/19 02:12 999 MLS/HR Sodium Chloride 1,000 ml @ ud STK-MED ONCE .ROUTE 09/22/19 00:56 09/22/19 00:59 DC 09/22/19 01:14 999 MLS/HR Vital Signs/I&O 09/22/19 00:44 B/P (MAP) Progress Progress Note #1: Time: 01:07 Progress Note The patient is very agitated, has rapid shallow breathing and states she is in pain. I suspect she is also having quite a bit of anxiety related to this. She is retching some brown bile into the ice cream bucket. Plan to give her some Zofran for her nausea, fentanyl for her pain and noticed that she has Trousseau's sign upon deflation of the blood pressure cuff. Some Ativan is indicated because she refuses to wear the oxygen mask to help her rebreathe her CO2. We'll check labs, urine, drug screen and after we have her a little more calm we will re-attempt to examine the patient. Progress Note #2: Time: 02:19 Progress Note The patient has metabolic acidosis with a gap 21. We will add a salicylate, acetaminophen, ethanol level. The D-lactate and methanol are send outs. We can check ketones on the urine but she's not diabetic/suspects is not likely to happen just one day of nausea vomiting. Her symptoms are greatly improved after Ativan and fentanyl and fluids and Zofran but her nausea started come back so we'll give her some more fluids for a total of 1500 cc and some Phenergan 25 mg. She may need to be watched overnight for intractable nausea vomiting. Nothing a bout her story suggests exactly why she might be acidotic. I suspected maybe fermentation of her bowel since she has very quiescent bowel sounds but a dextra lactate is a send out. We will obtain a acute abdomen series looking for evidence of ileus. Progress Note #3: Time: 03:52 Progress Note Lab workup is unrevealing. She got her IV fluids and is feeling much better even sleeping softly. Really give her some Pepcid since she's having some burning in the back of her throat. If she can tolerate a pill for the next 15-20 minutes without vomiting it up then we can send her home with Phenergan and Zofran. Ketonuria probably explains her acidosis with a gap. Progress Note #4: Time: 04:46 Progress Note Recurrence of nausea and vomiting. Gave her another 8 mg Zofran and she vomited again. Now she says she's having shakes and having some back pain. She hasn't think she can tolerate orals so were going to put her on observation under Dr. Felton. Diagnostic Imaging Diagonstic Imaging: Xray Plain Films/CT/US/NM/MRI: abdomen (acute abdomen series) Comments Nonspecific bowel gas pattern. Unremarkable for any acute cardiopulmonary processes. Reviewed: Reviewed by Me Departure Communication (Admissions) Time/Spoke to Admitting Phy: 04:45 Dr. Ahumada; discussed case lab and plan and he agrees to observe the patient. Impression Primary Impression: Gastroenteritis Additional Impressions: Intractable nausea and vomiting Metabolic acidosis with increased anion gap and accumulation of organic acids Disposition: ADMITTED INPATIENT Condition: Stable Admissions Decision to Admit Reason: Admit from ER (General) Decision to Admit/Date: Sep 22, 2019 Time/Decision to Admit Time: 04:40 Departure-Patient Inst. Referrals: TOMMY AHUMADA MD (PCP/Family) Primary Care Physician Add. Discharge Instructions: Drink plenty of fluids. Stick to a liquid diet. As your symptoms improve you can advance to soft foods. Zofran 1 tablet every 6 hours as needed for nausea or vomiting. Phenergan 1 tablet every 6 hours as needed for nausea or vomiting. Use your pain medicines as prescribed. Tylenol/ibuprofen as needed for pain. Start taking Pepcid 20 mg twice daily for the next week. If your symptoms persist for more than 5 days you should follow-up with primary care. If you have intractable pain or nausea and vomiting please return to the nearest ER. All discharge instructions reviewed with patient and/or family. Voiced understanding. NORBERTO LOVELL Sep 22, 2019 01:08 POS
[2019-09-22 01:15] LABS: BASOPHILS % (AUTO) 0 % (0-10); EOSINOPHILS % (AUTO) 0 % (0-10); HEMATOCRIT 39 % (35-52); HEMOGLOBIN 13.4 G/DL (11.5-16.0); LYMPHOCYTES # (AUTO) 2.3 X 10^3 (1.0-4.0); LYMPHOCYTES % (AUTO) 18 % (12-44); MEAN CORPUSCULAR HEMOGLOBIN 31 PG (25-34); MEAN CORPUSCULAR HGB CONC 35 G/DL (32-36); MEAN CORPUSCULAR VOLUME 90 FL (80-99); MEAN PLATELET VOLUME 10.5 FL (7.4-10.4); MONOCYTES # (AUTO) 0.5 X 10^3 (0.0-1.0); MONOCYTES % (AUTO) 4 % (0-12); NEUTROPHILS # (AUTO) 10.2 X 10^3 (1.8-7.8); NEUTROPHILS % (AUTO) 78 % (42-75); PLATELET COUNT 367 10^3/uL (130-400); RED CELL DISTRIBUTION WIDTH 12.1 % (10.0-14.5); WHITE BLOOD COUNT 12.9 10^3/uL (4.3-11.0)
[2019-09-22 01:38] LABS: ALANINE AMINOTRANSFERASE 24 U/L (0-55); ALBUMIN 4.7 GM/DL (3.2-4.5); ALKALINE PHOSPHATASE 50 U/L (40-136); BILIRUBIN,TOTAL 0.8 MG/DL (0.1-1.0); BUN/CREATININE RATIO 15; CALCIUM 10.1 MG/DL (8.5-10.1); CARBON DIOXIDE 15 MMOL/L (21-32); CHLORIDE 104 MMOL/L (98-107); CREATININE SERUM 0.79 MG/DL (0.60-1.30); GFR ESTIMATED > 60; GLUCOSE 180 MG/DL (70-105); LIPASE 13 U/L (8-78); POTASSIUM 3.6 MMOL/L (3.6-5.0); SODIUM 140 MMOL/L (135-145); TOTAL PROTEIN 7.7 GM/DL (6.4-8.2)
[2019-09-22] MEDS ORDERED: NS IV 500 ML 500 ML IV ONE (02:09)
[2019-09-22] MEDS ORDERED: KETOROLAC 30 MG/ML VIAL IVP ONE (02:15)
[2019-09-22] MEDS ORDERED: PROMETHAZINE INJ 25 MG/ML (PHENERGAN) AMP IVP ONE (02:15)
[2019-09-22 02:40] LABS: SALICYLATE < 5.0 MG/DL (5.0-20.0)
[2019-09-22 02:48] LABS: ACETAMINOPHEN < 10 UG/ML (10-30)
[2019-09-22 02:56] LABS: BILIRUBIN,URINE NEGATIVE (NEGATIVE); CLARITY,URINE CLEAR; COLOR,URINE YELLOW; GLUCOSE, URINE (UA) 1+ (NEGATIVE); KETONES,URINE 4+ (NEGATIVE); LEUKOCYTE ESTERASE ,URINE 1+ (NEGATIVE); NITRITE,URINE NEGATIVE (NEGATIVE); PH,URINE 6 (5-9); PROTEIN,URINE 2+ (NEGATIVE)
[2019-09-22 03:11] LABS: AMPHETAMINE SCREEN, URINE NEGATIVE (NEGATIVE); BARBITURATE SCREEN URINE NEGATIVE (NEGATIVE); BENZODIAZEPINES SCREEN URINE POSITIVE (NEGATIVE); CANNABINOID SCREEN, URINE POSITIVE (NEGATIVE); COCAINE SCREEN URINE NEGATIVE (NEGATIVE); METHADONE STAT NEGATIVE (NEGATIVE); METHAMPHETAMINE SCREEN URINE S NEGATIVE (NEGATIVE); OPIATE SCREEN URINE NEGATIVE (NEGATIVE); OXYCODONE STAT POSITIVE (NEGATIVE); PROPOXYPHENE STAT NEGATIVE (NEGATIVE); TRICYCLIC ANTIDEPRESSANTS SCRE NEGATIVE (NEGATIVE)
[2019-09-22 03:12] LABS: BACTERIA,URINE MODERATE /HPF; WBC,URINE 0-2 /HPF
[2019-09-22] MEDS ORDERED: ONDA4TAB11 PO ×2 (03:59→08:52)
[2019-09-22] MEDS ORDERED: FAMO-119 PO (03:59)
[2019-09-22] MEDS ORDERED: PROM25TA14 PO ×2 (03:59→08:52)
[2019-09-22] MEDS ORDERED: FAMOTIDINE 20 MG (PEPCID) TABLET PO ONE (04:00)
[2019-09-22] MEDS: RX-PHENERGAN 25 MG SUPP PPK#3 PR STA ×2 (04:14→04:51)
[2019-09-22] MEDS: RX-ONDANSETRON 4 MG ODT (ZOFRAN) PPK #4 PO STA ×2 (04:14→04:51)
--- NOTE | 2019-09-22 04:52 | NUR ---
PT HAS DECIDED TO BE ADMITTED AT THIS TIME INSTEAD OF GOING HOME. ZOFRAN AND PHEREGAN RX SCRIPTS LABELED TO GIVE TO PT, PLACED IN ORANGE BOX IN MED ROOM FOR PHARMACY TO RE-LABEL.
--- NOTE | 2019-09-22 05:10 | NUR ---
VIRGINIA LOYD admitted to room 425-1, with an admitting diagnosis of Intractable nausea/vomiting and gastroenteritis, on 09/22/19 from ED via wheelchair, accompanied by staff and .VIRGINIA LOYD introduced to surroundings, call light, bed controls, phone, TV, temperature control, lights, meal times, smoking policy, visitor policy, side rail policy, bathrooms and showers. Patient Rights given to patient in the handbook. VIRGINIA LOYD verbalizes understanding that [facility] is not responsible for the loss or damage to any personal effects or valuables that are kept in the patients posession during their hospitalization. Patient and family were informed about the Rapid Response Team and its purpose.
[2019-09-22 05:15] VITALS: BP 131/88
--- NOTE | 2019-09-22 05:15 | NUR ---
VIRGINIA LOYD admitted to room 425-1, with an admitting diagnosis of CONTRACTIBLE N/V AND GASTROENTERITIS, on 09/22/19 from [facility] ED via WHEELCHAIR, accompanied STAFF AND .VIRGINIA LODY introduced to surroundings, call light, bed controls, phone, TV, temperature control, lights, meal times, smoking policy, visitor policy, side rail policy, bathrooms and showers. Patient Rights given to patient in the handbook. VIRGINIA LOYD verbalizes understanding that [facility] is not responsible for the loss or damage to any personal effects or valuables that are kept in the patients posession during their hospitalization. Addendum: 09/22/19 at 0636 by MEE PHILLIPS RN DUPLICATE
[2019-09-22] MEDS ORDERED: LACTATED RINGERS 1,000 ML IV ONE (05:22)
--- NOTE | 2019-09-22 05:38 | Diagnostic Imaging Report ---
EXAMINATION: Acute abdomen series at 3:33 AM INDICATION: Abdominal pain The accompanying erect PA chest shows the heart size to be within normal limits. The lungs are clear. There is no evidence for failure, pneumonia or for a pleural effusion. There is no sign of a pneumoperitoneum. Supine and erect views of the abdomen were obtained. There is only a very small amount of gas in both the large and small bowel and the stomach. The amount of bowel gas has decreased since the prior exam of 10/05/2014. There is no mass, organomegaly or pathological calcification evident. As noted on the prior exam, there are few phleboliths overlying the pelvis. The osseous structures are intact. IMPRESSION: There is a paucity of bowel gas. This appearance is nonspecific. There is no acute abnormality identified. Dictated by: Dictated on workstation # [id number]
[2019-09-22] MEDS ORDERED: HALOPERIDOL 5 MG/ML (HALDOL) AMP IV PRN ×2 (05:45→06:00)
[2019-09-22] MEDS ORDERED: oxyCODONE/APAP 5/325MG (PERCOCET 5) TABLET PO PRN (06:00)
[2019-09-22] MEDS ORDERED: ONDANSETRON 4 MG/2 ML (SDV) Z0FRAN IV PRN (06:00)
[2019-09-22] MEDS ORDERED: KETOROLAC 15 MG/ML VIAL IVP PRN (06:00)
[2019-09-22] MEDS ORDERED: LACTATED RINGERS 1,000 ML IV SCH (06:00)
[2019-09-22] MEDS ORDERED: LORazepam INJ 2 MG/ML (ATIVAN) VIAL IV PRN (06:00)
[2019-09-22] MEDS ORDERED: PROMETHAZINE INJ 25 MG/ML (PHENERGAN) AMP IV PRN (06:00)
[2019-09-22] MEDS ORDERED: fentaNYL INJECTION 100 MCG/2 ML AMP IV PRN (06:15)
[2019-09-22] MEDS ORDERED: diphenhydrAMINE 25 MG TAB (BENADRYL) PO PRN (06:15)
[2019-09-22] MEDS ORDERED: ANTACID SUSP 30 ML UDC (MYLANTA) PO PRN (06:15)
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
[2019-09-22] MEDS ORDERED: OXYC1TAB12 PO (08:19)
[2019-09-22] MEDS ORDERED: BACL10TA PO (08:52)
[2019-09-22] MEDS ORDERED: FAMO20TA3 PO (08:52)
[2019-09-22] MEDS ORDERED: DULO30CA49 PO (08:52)
--- NOTE | 2019-09-22 08:53 | NUR ---
SPOKE WITH THE PATIENT ABOUT HER MEDICATIONS. SHE STATES SHE TAKES PERCOCET, BACLOFEN, AND WAS RECENTLY PRESCRIBED DULOXETINE BUT HAS NOT BEEN TAKING IT REGULARLY. SHE STATES SHE LIKES TO EAT WITH IT AND HAS NOT BEEN EATING REGULARLY. [facility] FILLED: 09-22-19 ZOFRAN ODT 4MG Q6H PRN (NOT PICKED UP YET) 09-22-19 FAMOTIDINE 20MG BID X 7 DAYS (NOT PICKED UP YET) 09-22-19 PROMETHAZINE 25MG Q6H PRN #12 (NOT PICKED UP YET) 09-21-19 DULOXETINE 30MG DAILY 09-09-19 PERCOCET 10-325MG 1/2 -1 Q6H PRN #60 09-09-19 BACLOFEN 10MG Q8H I ADDED THE THREE NEW SCRIPTS [facility] WAS PROCESSING TODAY FROM THE ER. I INFORMED THE PATIENT I WOULD ADD THEM TO THE MED REC EVEN THOUGH SHE HAS NOT PICKED THEM UP YET THEY SHOULD BE AVAILABLE AT [facility] WHEN SHE IS DISCHARGED. SHE STATES SHE DOES NOT NORMALLY TAKE ANYTHING OTC.
[2019-09-22] MEDS ORDERED: FAMOTIDINE 20MG/2ML IV (PEPCID) IVP SCH (09:00)
[2019-09-22 12:00] VITALS: BP 97/57
[2019-09-22 14:20] LABS: BASOPHILS % (AUTO) 0 % (0-10); EOSINOPHILS % (AUTO) 0 % (0-10); HEMATOCRIT 32 % (35-52); HEMOGLOBIN 10.9 G/DL (11.5-16.0); LYMPHOCYTES % (AUTO) 19 % (12-44); MEAN CORPUSCULAR HEMOGLOBIN 31 PG (25-34); MEAN CORPUSCULAR HGB CONC 34 G/DL (32-36); MEAN CORPUSCULAR VOLUME 92 FL (80-99); MEAN PLATELET VOLUME 10.2 FL (7.4-10.4); MONOCYTES # (AUTO) 0.6 X 10^3 (0.0-1.0); MONOCYTES % (AUTO) 6 % (0-12); NEUTROPHILS # (AUTO) 7.8 X 10^3 (1.8-7.8); NEUTROPHILS % (AUTO) 75 % (42-75); PLATELET COUNT 229 10^3/uL (130-400); RED CELL DISTRIBUTION WIDTH 12.3 % (10.0-14.5); WHITE BLOOD COUNT 10.5 10^3/uL (4.3-11.0)
[2019-09-22 14:46] LABS: ALANINE AMINOTRANSFERASE 18 U/L (0-55); ALBUMIN 3.7 GM/DL (3.2-4.5); ALKALINE PHOSPHATASE 33 U/L (40-136); BILIRUBIN,TOTAL 0.6 MG/DL (0.1-1.0); BUN/CREATININE RATIO 18; CALCIUM 8.5 MG/DL (8.5-10.1); CARBON DIOXIDE 24 MMOL/L (21-32); CHLORIDE 110 MMOL/L (98-107); CREATININE SERUM 0.67 MG/DL (0.60-1.30); GFR ESTIMATED > 60; GLUCOSE 101 MG/DL (70-105); POTASSIUM 3.4 MMOL/L (3.6-5.0); SODIUM 142 MMOL/L (135-145); TOTAL PROTEIN 5.5 GM/DL (6.4-8.2)
--- NOTE | 2019-09-22 15:00 | NUR ---
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
--- NOTE | 2019-09-22 15:27 | NUR ---
"RD ASSESSMENT PMHx: GERD PT INTERACTION: Pt was awake and pleasant during nutrition assessment. Pt states current appetite is poor and has been since 09/21. Pt states having recent issues with n/v since then as well. Pt states following a regular diet at home, and currently has no issues with chewing/swallowing food. Pt states no recent wt changes. Note unable to determine recent wt hx, per chart review. ABNORMAL NUTRITION-RELATED LAB VALUES: glu 180 (H); alb 4.7 (H) Est. kcal needs: 3195-5392 kcal (25-30 kcal/kg) Est. Pro needs: 66-79 g Pro (1.0-1.2 g Pro/kg) PES STATEMENT: Inadequate oral intake (NI-2.1) related to nausea | vomiting | loss of appetite as evidenced by pt interview INTERVENTION: Continue with current diet order of Clear Liquid diet. Advance diet to Regular diet, as medically able. MONITOR/EVALUATE: PO Intake; Plan of Care; Hydration Status; Weight Status; Lab Values Gamaliel Pina, MS, RD, LD Ext. [phone]"
[2019-09-22 15:30] VITALS: BP 104/60
[2019-09-22 15:49] VITALS: BP 104/60
--- NOTE | 2019-09-22 15:49 | NUR ---
VIRGINIA LOYD demonstrates understanding of discharge instructions and accurately returns instructions upon questioning. Copy of Post-Discharge Instructions and Medication Discharge Instructions given to PATIENT. VIRGINIA LOYD is able to manage continuing needs after discharge. Patients belongings returned to PATIENT. Skin dry and intact; no breakdown noted. Patient discharged from [facility]- on 09/22/19 [id number] . VIRGINIA LOYD left floor via W/C, accompanied by FAMILY AND STAFF.
== END 2019-09-22 15:12 | disposition home or self-care (01) ==
LOC: EDUNIT# 00:41 → ER 00:43 → UNDOADMOB 04:50 → 4TH 04:50 → UNDODISOB 15:49
PROVIDERS: ADMIT Family Medicine; ATTEND Family Medicine
DX: K52.9 Noninfective gastroenteritis and colitis, unspecified (principal); G89.29 Other chronic pain; G43.909 Migraine, unspecified, not intractable, without status migrainosus; M54.9 Dorsalgia, unspecified; K21.9 Gastro-esophageal reflux disease without esophagitis; E87.2 Acidosis; F41.9 Anxiety disorder, unspecified; Z79.891 Long term (current) use of opiate analgesic; Z88.5 Allergy status to narcotic agent; Z88.6 Allergy status to analgesic agent; Z91.040 Latex allergy status; Z87.891 Personal history of nicotine dependence; Z90.89 Acquired absence of other organs; Z90.710 Acquired absence of both cervix and uterus; Z79.899 Other long term (current) drug therapy; Z83.3 Family history of diabetes mellitus; Z82.49 Family history of ischemic heart disease and other diseases of the circulatory system
CPT/HCPCS: 36415; 74022; 80053; 80306; 80320; 80329; 81000; 83690; 84703; 85025; G0378

== ENCOUNTER 2022-10-09 19:45 | Emergency (ER) | payer OTHER ==
[~2022-10-09] VITALS: Ht 167 cm; Wt 68.0 kg
[~2022-10-09 19:45] MED LIST changes: +BACL10TA PO; -CIPR500T4 PO; +CIPR500T5 PO; +DULO30CA49 PO; +FAMO-119 PO; +FAMO20TA3 PO; +ONDA4TAB11 PO; +OXYC1TAB12 PO; +PROM25TA14 PO; +TRM50T PO
[2022-10-09] MEDS ORDERED: NS IV 1000 ML 1,000 ML IV STA (20:14)
[2022-10-09] MEDS ORDERED: KETOROLAC 30 MG/ML VIAL IVP STA (20:14)
[2022-10-09] MEDS ORDERED: fentaNYL INJ 100 MCG/2 ML AMP IVP STA ×2 (20:14→23:56)
[2022-10-09] MEDS ORDERED: ONDANSETRON 4 MG/2 ML (SDV) Z0FRAN IVP ONE ×2 (20:15→20:45)
[2022-10-09 20:38] LABS: BASOPHILS % (AUTO) 0 % (0-10); EOSINOPHILS % (AUTO) 0 % (0-10); HEMATOCRIT 36 % (35-52); HEMOGLOBIN 12.6 g/dL (11.5-16.0); LYMPHOCYTES # (AUTO) 2.3 10^3/uL (1.0-4.0); LYMPHOCYTES % (AUTO) 18 % (12-44); MEAN CORPUSCULAR HEMOGLOBIN 31 pg (25-34); MEAN CORPUSCULAR HGB CONC 35 g/dL (32-36); MEAN CORPUSCULAR VOLUME 89 fL (80-99); MEAN PLATELET VOLUME 10.7 fL (9.0-12.2); MONOCYTES # (AUTO) 0.6 10^3/uL (0.0-1.0); MONOCYTES % (AUTO) 5 % (0-12); NEUTROPHILS # (AUTO) 9.7 10^3/uL (1.8-7.8); NEUTROPHILS % (AUTO) 76 % (42-75); PLATELET COUNT 264 10^3/uL (130-400); WHITE BLOOD COUNT 12.8 10^3/uL (4.3-11.0)
--- NOTE | 2022-10-09 20:44 | ED Back Pain ---
General Chief Complaint: Back Problems Stated Complaint: BACK PAIN, VOMITING Nursing Triage Note: PT AMB TO ED BY POV WITH C/O MID/UPPER BACK PAIN AND N/V. PT HAD SUDDEN ONSET OF PAIN WHILE AT WORK, FOLLOWED BY N/V. PT HYPERVENTILATING UPON ARRIVAL. PT TOOK ZOFRAN, BUT IT DID NOT HELP WITH THE NAUSEA. PT ALSO TOOK A PERCOCET, DID NOT HELP WITH PAIN. Source of Information: Patient Exam Limitations: No Limitations History of Present Illness Date Seen by Provider: Oct 09, 2022 Time Seen by Provider: 20:05 Initial Comments Here with report of mid back pain that has had sudden onset today that is associated with nausea and vomiting. She is also hyperventilating which she admits. States that she tried to take a Zofran for the nausea and vomiting but threw it up. She also tried to take A Percocet but that did not help. Does have history of chronic pain and does take THC Gummies for that but she apparently was prescribed as well as Percocet. Denies ever having kidney stones. She is unable to get comfortable. She does have chronic low back pain for which she takes the medicines listed above. Denies any recent injury. Denies difficulty with urination or bowel movement. Denies breathing problems except for the hyperventilation. Does admit to numbness of her hands and feet with the hyperventilation. Timing/Duration: 4-6 Hours Severity: Moderate, Severe Pain/Injury Location: Back Radiation: Other (Nonsignificant although does have pain down her right leg from her low back pain) Modifying Factors: Worse With Movement; Improves With Other (Unable to find comfortable position) Associated Symptoms: No weakness, No loss of bladder control, No loss of bowel control Allergies and Home Medications Allergies Coded Allergies: latex (Verified Allergy, Unknown, skin irritation, 03/21/16) tramadol (Unverified Adverse Reaction, Mild, Stomach upset, 08/08/14) hydrocodone (Verified Adverse Reaction, Unknown, TOOK ON EMPTY STOMACH = NAUSEA, 09/21/06) Patient Home Medication List Home Medication List Reviewed: Yes Baclofen (Baclofen) 10 Mg Tablet, 10 MG PO Q8H PRN for MUSCLE SPASMS, (Reported) Entered as Reported by: URIEL LUND on 09/22/19 0852 Duloxetine HCl (Duloxetine HCl) 30 Mg Capsule.dr, 30 MG PO DAILY, (Reported) Entered as Reported by: URIEL LUND on 09/22/19851 Famotidine (Acid Boiler Attendant (FAMOTIDINE)) 20 Mg Tablet, 20 MG PO BID, (Reported) Entered as Reported by: URIEL LUND on 09/22/19851 Ondansetron (Ondansetron Odt) 4 Mg Tab.rapdis, 4 MG PO Q6H PRN for NAUSEA/VOMITING-1ST LINE, (Reported) Entered as Reported by: URIEL LUND on 09/22/19851 Oxycodone HCl/Acetaminophen (Percocet 10-325 mg Tablet) 1 Each Tablet, 0.5-1 TAB PO Q6H PRN for PAIN-MODERATE, (Reported) Entered as Reported by: URIEL LUND on 09/22/19818 Promethazine HCl (Promethazine Tablet) 25 Mg Tablet, 25 MG PO Q6H PRN for NAUSEA/VOMITING-2ND LINE, (Reported) Entered as Reported by: URIEL LUND on 09/22/19851 Review of Systems Constitutional: No chills, No fever EENTM: No nose congestion, No throat pain Respiratory: No cough, No short of breath Cardiovascular: No chest pain, No edema Gastrointestinal: No diarrhea; nausea, vomiting Genitourinary: No dysuria, No hematuria Musculoskeletal: back pain, muscle pain Skin: no symptoms reported Psychiatric/Neurological: Anxiety, Paresthesia (Feet and hands secondary to hyperventilation) All Other Systems Reviewed Negative Unless Noted: Yes Past Jewlksn-Ldfrfi-Ijcqqo Hx Patient Social History Tobacco Use?: No Use of E-Cig and/or Vaping dev: No Substance use?: Yes Substance type: Marijuana Substance frequency: Couple times a week Alcohol Use?: No Pt feels they are or have been: No Immunizations Up To Date Tetanus Booster (TDap): Unknown Influenza Vaccine Up-to-Date: Yes; Up-to-Date First/Initial COVID19 Vaccinat: 2020 Second COVID19 Vaccination Chucky: 2020 Seasonal Allergies Seasonal Allergies: Yes Past Medical History Surgery/Hospitalization HX: CHRONIC BACK PAIN, DEGENERATIVE DISC DISEASE Surgeries: Yes ( wisdom teeth, [facility]) Appendectomy, Hysterectomy, Tonsillectomy Respiratory: No Cardiac: No Neurological: Yes Headaches /Migraines Reproductive Disorders: No J[employer]NEY[employer]DER History: Hysterectomy Gastrointestinal: Yes (abd pain) Gastroesophageal Reflux, Irritable Bowel Musculoskeletal: Yes (Neck fx at C1-C2) Back Injury Endocrine: No Cancer: No Psychosocial: Yes Anxiety Integumentary: No Blood Disorders: No Family Medical History Reviewed Nursing Family Hx Alcoholism 19 MOTHER Alzheimer's disease grandparent Colon cancer grandparent Diabetes mellitus 19 FATHER Hypertension grandparent Psychosocial problem 19 FATHER 19 MOTHER G8 SISTER No Pertinent Family Hx Physical Exam Vital Signs Vital Signs - First Documented 10/09/22 19:53 Temp 36.6 Pulse 81 Resp 32 B/P (MAP) 129/71 (90) Pulse Ox 100 O2 Delivery Room Air Capillary Refill : Less Than 3 Seconds Height, Weight, BMI Height: 5'8.50" Weight: 158lbs. 0.0oz. 71.543720ma; 24.00 BMI Method:Stated General Appearance: No Apparent Distress, WD/WN HEENT: PERRL/EOMI, Pharynx Normal Neck: Non Tender, Supple Cardiovascular: No Murmur, Tachycardia Respiratory: Lungs Clear, Normal Breath Sounds Peripheral Pulses: 2+ Dorsalis Pedis (R), 2+ Left Dors-Pedis (L), 2+ Radial Pulses (R), 2+ Radial Pulses (L) Gastrointestinal: Non Tender, Soft Back: Normal Inspection, No CVA Tenderness, No Vertebral Tenderness Extremity: Normal Range of Motion, Non Tender Neurologic/Psychiatric: Alert, Oriented x3 Skin: Normal Color, Warm/Dry Progress/Results/Core Measures Results/Orders Lab Results Laboratory Tests Test 10/09/22 20:30 10/09/22 21:43 Range/Units White Blood Count 12.8 H 4.3-11.0 10^3/uL Red Blood Count 4.01 3.80-5.11 10^6/uL Hemoglobin 12.6 11.5-16.0 g/dL Hematocrit 36 35-52 % Mean Corpuscular Volume 89 80-99 fL Mean Corpuscular Hemoglobin 31 25-34 pg Mean Corpuscular Hemoglobin Concent 35 32-36 g/dL Red Cell Distribution Width 11.9 10.0-14.5 % Platelet Count 264 130-400 10^3/uL Mean Platelet Volume 10.7 9.0-12.2 fL Immature Granulocyte % (Auto) 0 % Neutrophils (%) (Auto) 76 H 42-75 % Lymphocytes (%) (Auto) 18 12-44 % Monocytes (%) (Auto) 5 0-12 % Eosinophils (%) (Auto) 0 0-10 % Basophils (%) (Auto) 0 0-10 % Neutrophils # (Auto) 9.7 H 1.8-7.8 10^3/uL Lymphocytes # (Auto) 2.3 1.0-4.0 10^3/uL Monocytes # (Auto) 0.6 0.0-1.0 10^3/uL Eosinophils # (Auto) 0.0 0.0-0.3 10^3/uL Basophils # (Auto) 0.0 0.0-0.1 10^3/uL Immature Granulocyte # (Auto) 0.1 0.0-0.1 10^3/uL Sodium Level 139 135-145 MMOL/L Potassium Level 2.9 L 3.6-5.0 MMOL/L Chloride Level 104 98-107 MMOL/L Carbon Dioxide Level 17 L 21-32 MMOL/L Anion Gap 18 H 5-14 MMOL/L Blood Urea Nitrogen 12 7-18 MG/DL Creatinine 0.84 0.60-1.30 MG/DL Estimat Glomerular Filtration Rate 90 BUN/Creatinine Ratio 14 Glucose Level 191 H 70-105 MG/DL Calcium Level 9.9 8.5-10.1 MG/DL Corrected Calcium 8.5-10.1 MG/DL Total Bilirubin 0.7 0.1-1.0 MG/DL Aspartate Amino Transf (AST/SGOT) 14 5-34 U/L Alanine Aminotransferase (ALT/SGPT) 15 0-55 U/L Alkaline Phosphatase 51 40-136 U/L C-Reactive Protein High Sensitivity 0.03 0.00-0.50 MG/DL Total Protein 7.3 6.4-8.2 GM/DL Albumin 4.6 H 3.2-4.5 GM/DL Lipase 13 8-78 U/L Urine Color YELLOW Urine Clarity SL CLOUDY Urine pH 6.5 5-9 Urine Specific [place] >=1.030 1.016-1.022 Urine Protein NEGATIVE NEGATIVE Urine Glucose (UA) NEGATIVE NEGATIVE Urine Ketones 3+ H NEGATIVE Urine Nitrite NEGATIVE NEGATIVE Urine Bilirubin NEGATIVE NEGATIVE Urine Urobilinogen 1.0 < = 1.0 MG/DL Urine Leukocyte Esterase NEGATIVE NEGATIVE Urine RBC (Auto) NEGATIVE NEGATIVE Urine RBC NONE /HPF Urine WBC 2-5 /HPF Urine Squamous Epithelial Cells 25-50 H /HPF Urine Crystals NONE /LPF Urine Bacteria FEW H /HPF Urine Casts NONE /LPF Urine Mucus NEGATIVE /LPF Urine Culture Indicated NO My Orders Orders - TERRA CRWO MD Cbc With Automated Diff (10/09/22 20:14) Comprehensive Metabolic Panel (10/09/22 20:14) Hs C Reactive Protein (10/09/22 20:14) Ua Culture If Indicated (10/09/22 20:14) Fentanyl Inj (Sublimaze Injection) (10/09/22 20:14) Ketorolac Injection (Toradol Injection) (10/09/22 20:14) Ondansetron Injection (Zofran Injectio (10/09/22 20:15) Ns Iv 1000 Ml (Sodium Chloride 0.9%) (10/09/22 20:14) Ed Iv/Invasive Line Start (10/09/22 20:14) Lipase (10/09/22 20:44) Hydromorphone Injection (Dilaudid Inject (10/09/22 20:45) Ondansetron Injection (Zofran Injectio (10/09/22 20:45) Orphenadrine Inj (Ed Only) (Norflex Inje (10/09/22 21:26) Droperidol Inj (Ed Only) (Inapsine Inj ( (10/09/22 21:30) Ct Abdomen/Pelvis W (10/09/22 22:42) Lactated Ringers (Lr 1000 Ml Iv Solution (10/09/22 22:42) Droperidol Inj (Ed Only) (Inapsine Inj ( (10/09/22 23:15) Iohexol Injection (Omnipaque 350 Mg/Ml 1 (10/09/22 23:45) Sodium Chloride Flush (Catheter Flush Sy (10/09/22 23:45) Ns (Ivpb) (Sodium Chloride 0.9% Ivpb Bag (10/09/22 23:45) Fentanyl Inj (Sublimaze Injection) (10/09/22 23:56) Promethazine Injection (Phenergan Injec (10/10/22 02:00) Diphenhydramine Injection (Benadryl Inje (10/10/22 02:00) Ns (Ivpb) (Sodium Chloride 0.9% Ivpb Bag (10/10/22 02:06) Pantoprazole Injection (Protonix Injecti (10/10/22 03:30) Promethazine Injection (Phenergan Injec (10/10/22 04:15) Diphenhydramine Injection (Benadryl Inje (10/10/22 04:15) Ns (Ivpb) (Sodium Chloride 0.9% Ivpb Bag (10/10/22 04:06) Medications Given in ED Current Medications Medications Dose Ordered Sig/Nata Route Start Time Stop Time Status Last Admin Dose Admin Diphenhydramine HCl 25 mg ONCE ONCE IM 10/10/22 02:00 10/10/22 02:02 DC 10/10/22 02:13 25 MG Diphenhydramine HCl 25 mg ONCE ONCE IVP 10/10/22 04:15 10/10/22 04:16 DC 10/10/22 04:09 25 MG Droperidol 1.25 mg ONCE ONCE IV 10/09/22 21:30 10/09/22 21:31 DC 10/09/22 21:34 1.25 MG Droperidol 1.25 mg ONCE ONCE IV 10/09/22 23:15 10/09/22 23:16 DC 10/09/22 23:17 1.25 MG Hydromorphone HCl 1 mg ONCE ONCE IV 10/09/22 20:45 10/09/22 20:47 DC 10/09/22 20:50 1 MG Iohexol 100 ml ONCE ONCE IV 10/09/22 23:45 10/09/22 23:46 DC 10/09/22 23:40 80 ML Ondansetron HCl 4 mg ONCE ONCE IVP 10/09/22 20:15 10/09/22 20:16 DC 10/09/22 20:28 4 MG Ondansetron HCl 4 mg ONCE ONCE IVP 10/09/22 20:45 10/09/22 20:47 DC 10/09/22 20:50 4 MG Pantoprazole 40 mg ONCE ONCE IV 10/10/22 03:30 10/10/22 03:31 DC 10/10/22 03:32 40 MG Promethazine HCl 12.5 mg ONCE ONCE IVP 10/10/22 02:00 10/10/22 02:02 DC 10/10/22 02:13 12.5 MG Promethazine HCl 12.5 mg ONCE ONCE IVP 10/10/22 04:15 10/10/22 04:16 DC 10/10/22 04:09 12.5 MG Sodium Chloride 10 ml NEEDED PRN IV 10/09/22 23:45 10/09/22 23:40 10 ML Sodium Chloride 50 ml @ ud STK-MED ONCE .ROUTE 10/10/22 02:06 10/10/22 02:09 DC 10/10/22 02:13 100 MLS/HR Sodium Chloride 50 ml @ ud STK-MED ONCE .ROUTE 10/10/22 04:06 10/10/22 04:10 DC 10/10/22 04:14 100 MLS/HR Sodium Chloride 100 ml ONCE ONCE IV 10/09/22 23:45 10/09/22 23:46 DC 10/09/22 23:40 80 ML Vital Signs/I&O 10/09/22 10/10/22 19:53 03:06 Temp 36.6 36.0 Pulse 81 63 Resp 32 20 B/P (MAP) 129/71 (90) 140/87 (104) Pulse Ox 100 99 O2 Delivery Room Air Blood Pressure Mean: 90 Progress Progress Note : Progress Note Seen and evaluated. IV, labs, UA, normal saline 1 L bolus, Zofran 4 mg IV, Toradol 30 mg IV and fentanyl 75 mcg IV ordered. Anticipate CT scan but will await UA to determine blood in urine. Monitor patient. 2044: Pain is not better and nausea is not better. Patient is not narcotic viktor so we will go ahead and give 1 mg of Dilaudid IV and another 4 mg of Zofran IV. Monitor patient. 2149: Patient reports that she is still having nausea and vomiting. Given her cannabis use and that we have maxed out Zofran with 2 doses of 4 mg, I will switch to droperidol 1.25 mg IV. She is asking for a muscle relaxer which I have ordered Norflex 60 mg IV. Monitor patient. 2241: Given her persistent pain, we will go ahead and get CT abdomen and pelvis. LR 1 L bolus as she was noted to be slightly hypokalemic. 5: Patient is having persistent nausea. We will do repeat droperidol 1.25 mg IV. Monitor patient. 2356: Patient still complaining of pain and nausea. Fentanyl 100 mcg IV ordered. Monitor patient. 0200: Patient had been better but now is nauseated again. Phenergan 12.5 mg IV and Benadryl 25 mg IV ordered. Monitor patient. 0330: Seems to be doing a bit better but has burning. Protonix 40 mg IV ordered. Monitor patient. 0401: Patient states that she now has nausea again. Phenergan 12.5 mg IV and Benadryl 25 mg IV ordered. 0452: We are at the point of admission. This was discussed with the patient. She prefers to go home at this point. We can send her home with Phenergan suppository and I will send a prescription out for Phenergan tablets. She was okay with this. We did discuss return precautions and/or ad mission as an option. She declined admission. Verbalized understanding of discharge instructions and agreement with plan. Diagnostic Imaging Diagonstic Imaging: CT Plain Films/CT/US/NM/MRI: abdomen, pelvis Comments Impression from stat rad shows there is a small amount of free fluid in the pelvis. There is also a possible 2.4 cm right adnexal cyst. Otherwise no acute findings. Reviewed: Reviewed [place] Study, Reviewed by Me Departure Impression Primary Impression: Nausea and vomiting Qualified Codes: R11.2 - Nausea with vomiting, unspecified Additional Impression: Mid-back pain, acute Disposition: 01 HOME, SELF-CARE Condition: Stable Departure-Patient Inst. Decision time for Depature: 04:54 Referrals: TOMMY AHUMADA MD (PCP/Family) Primary Care Physician Patient Instructions: Nausea and Vomiting, Adult ED, Upper Back Pain ED, Muscle Strain (DC) Add. Discharge Instructions: All discharge instructions reviewed with patient and/or family. Voiced understanding. You may continue your pain medicine for your back pain. Use Phenergan suppositories 1 every 4-6 hours as needed for nausea and vomiting. You can continue your ondansetron/Zofran 4 mg every 4-6 hours as needed for nausea. Follow-up with your doctor later this week or early next week for recheck and further evaluation. Return for worse pain, weakness, persistent vomiting, decreased urination, chest pain or other concerns as needed. Scripts Promethazine HCl (Promethazine Tablet) 25 Mg Tablet 25 MG PO Q6H PRN for NAUSEA/VOMITING, #20 TAB 0 Refills Prov: TERRA CROW MD 10/10/22 Copy Copies To 1: TOMMY AHUMADA MD, TIMOTHY D MD Oct 09, 2022 20:44
[2022-10-09] MEDS ORDERED: HYDROmorphone 2 MG/ML VIAL (DILAUDID) IV ONE (20:45)
[2022-10-09 20:47] LABS: ALBUMIN 4.6 GM/DL (3.2-4.5); CHLORIDE 104 MMOL/L (98-107); POTASSIUM 2.9 MMOL/L (3.6-5.0); SODIUM 139 MMOL/L (135-145)
[2022-10-09 20:48] LABS: CALCIUM 9.9 MG/DL (8.5-10.1)
[2022-10-09 20:50] LABS: GLUCOSE 191 MG/DL (70-105); TOTAL PROTEIN 7.3 GM/DL (6.4-8.2)
[2022-10-09 20:51] LABS: BILIRUBIN,TOTAL 0.7 MG/DL (0.1-1.0); CARBON DIOXIDE 17 MMOL/L (21-32)
[2022-10-09 20:53] LABS: ALKALINE PHOSPHATASE 51 U/L (40-136); CREATININE SERUM 0.84 MG/DL (0.60-1.30); GFR ESTIMATED 90
[2022-10-09 20:54] LABS: BUN/CREATININE RATIO 14
[2022-10-09 20:56] LABS: ALANINE AMINOTRANSFERASE 15 U/L (0-55)
[2022-10-09] MEDS ORDERED: ORPHENADRINE 60 MG/2 ML (NORFLEX) AMP (ED ONLY) IV STA (21:26)
[2022-10-09] MEDS ORDERED: DROPERIDOL 5 MG/2 ML (INAPSINE) ED ONLY! IV ONE ×2 (21:30→23:15)
[2022-10-09 21:50] LABS: BILIRUBIN,URINE NEGATIVE (NEGATIVE); CLARITY,URINE SL CLOUDY; COLOR,URINE YELLOW; GLUCOSE, URINE (UA) NEGATIVE (NEGATIVE); KETONES,URINE 3+ (NEGATIVE); LEUKOCYTE ESTERASE ,URINE NEGATIVE (NEGATIVE); NITRITE,URINE NEGATIVE (NEGATIVE); PH,URINE 6.5 (5-9); PROTEIN,URINE NEGATIVE (NEGATIVE)
[2022-10-09 22:24] LABS: BACTERIA,URINE FEW /HPF; SQUAMOUS EPITHELIAL CELL,UR 25-50 /HPF
[2022-10-09] MEDS ORDERED: LACTATED RINGERS 1,000 ML IV STA (22:42)
[2022-10-09] MEDS ORDERED: NS 100 ML (IVPB) BAG IV ONE (23:45)
[2022-10-09] MEDS ORDERED: IOHEXOL 350 MG/ML 100 ML (OMNIPAQUE 350) VIAL IV ONE (23:45)
[2022-10-09] MEDS ORDERED: CATHETER FLUSH 10 ML SYR IV PRN (23:45)
[2022-10-10] MEDS ORDERED: diphenhydrAMINE 50 MG/ML INJ (BENADRYL) IM ONE (02:00)
[2022-10-10] MEDS ORDERED: PROMETHAZINE INJ 25 MG/ML (PHENERGAN) AMP IVP ONE ×2 (02:00→04:15)
[2022-10-10] MEDS ORDERED: NS (IVPB) 50 ML ONE ×2 (02:06→04:06)
[2022-10-10] MEDS ORDERED: PANTOPRAZOLE 40 MG (PROTONIX) VIAL IV ONE (03:30)
[2022-10-10] MEDS ORDERED: diphenhydrAMINE 50 MG/ML INJ (BENADRYL) IVP ONE (04:15)
[2022-10-10] MEDS ORDERED: RX-PHENERGAN 25 MG SUPP PPK#3 PR STA (04:51)
[2022-10-10] MEDS ORDERED: PROM25TA14 PO (04:57)
[2022-10-10 05:08] VITALS: BP 140/87
--- NOTE | 2022-10-10 06:46 | Diagnostic Imaging Report ---
PROCEDURE: CT abdomen and pelvis with contrast. TECHNIQUE: Multiple contiguous axial images were obtained through the abdomen and pelvis after administration of intravenous contrast. Auto Exposure Controls were utilized during the CT exam to meet ALARA standards for radiation dose reduction. All CT scans use one or more of the following dose optimizing techniques: automated exposure control, MA and/or KvP adjustment based on patient size and exam type or iterative reconstruction. INDICATION: New onset right-sided abdominal pain with nausea and vomiting. COMPARISON: 10/02/2015. DISCUSSION: Lung bases are well-aerated. Normal heart size. No pleural or pericardial fluid. The liver, gallbladder, pancreas, stomach, spleen, and adrenal glands are unremarkable. No renal stone or hydronephrosis. The appendix is surgically absent. Suspect normal follicular activity within the right ovary measuring up to 2.4 cm. Trace free fluid within the pelvis is likely physiologic. Uterus is surgically absent. The bladder is unremarkable. No adenopathy. The aorta is normal in caliber. No osseous abnormality identified. IMPRESSION: 1. No acute abnormality identified within the abdomen or pelvis. Normal follicular activity is suspected within the right ovary. 2. Agree with preliminary report. Dictated by: Dictated on workstation # [id number]
== END 2022-10-10 05:09 | disposition home or self-care (01) ==
LOC: EDUNIT# 19:45 → ER 19:48
DX: R11.2 Nausea with vomiting, unspecified (principal); M54.50 Low back pain, unspecified; G89.29 Other chronic pain; E87.6 Hypokalemia; Z91.040 Latex allergy status; Z88.5 Allergy status to narcotic agent; Z79.899 Other long term (current) drug therapy
CPT/HCPCS: 36415; 74177; 80053; 81000; 83690; 85025; 86141